=== PATIENT | female | born 1955 | race African-American/Black ===

== ENCOUNTER 2018-12-08 19:40 | Emergency (ER) | payer OTHER ==
[~2018-12-08] VITALS: Ht 165.1 cm; Wt 66.0 kg
[2018-12-08] MEDS ORDERED: SODIUM CHLORIDE 0.9% 10ML VIAL ONE (19:50)
[2018-12-08] MEDS ORDERED: VECURONIUM BROMIDE 10 MG/VIAL IV ONE ×2 (19:50→20:00)
[2018-12-08] MEDS ORDERED: EPINEPHRINE 0.1MG/ML (1:10,000) 10ML SYR ONE ×2 (19:58→20:15)
[2018-12-08] MEDS ORDERED: ALTEPLASE 100MG/VIAL IV NR ×2 (20:00→20:14)
[2018-12-08] MEDS ORDERED: SUCCINYLCHOLINE CHLORIDE 200MG/10ML IV ONE (20:00)
[2018-12-08] MEDS ORDERED: ETOMIDATE 2MG/ML 10ML VIAL IV ONE (20:00)
[2018-12-08] MEDS ORDERED: PROPOFOL 10MG/ML 100ML 100 ML IV ONE (20:00)
[2018-12-08] MEDS ORDERED: DOPAMINE 400MG/250ML PREMIX 250 ML IV ONE (20:36)
[2018-12-08] MEDS ORDERED: NOREPINEPHRINE 4MG/250ML PMX 250 ML IV SCH (20:52)
[2018-12-08] MEDS ORDERED: NOREPINEPHRINE 4MG/250ML PMX 250 ML IV ONE (20:53)
[2018-12-08] MEDS ORDERED: NOREPINEPHRINE 4 MG in DEXT 5% WATER 246 ML IV ONE (21:00)
[2018-12-08 21:34] LABS: BG BASE EXCESS -19.2 mmol/L (-2.0-2.0); BG CARBOXYHEMOGLOBIN 0.3 % (0.5-1.5); BG DEOXYHEMOGLOBIN 0.7 % (0.0-5.0); BG FRACTION INSPIRED OXYGEN 100; BG HCO3 ACT 11.8 mmol/L (22.0-26.0); BG METHEMOGLOBIN 0.3 % (0.0-1.5); BG OXYGEN SATURATION 99.3 % (92.0-98.5); BG OXYHEMOGLOBIN 98.7 % (94.0-97.0); BG PH 6.949 (7.350-7.450); BG PO2 377.8 mmHg (75.0-100.0); BG SAMPLE SITE RIGHT BRACHIAL; BG TIDAL VOLUME(mL) 500 mL; BG VENT MODE VENT - A/C; BG VENT RATE 14 set
[2018-12-08] MEDS ORDERED: IOHEXOL-350 100 ML BOTTLE ONE (21:36)
[2018-12-08 21:55] LABS: BASOPHILS % 0.4 % (0.0-2.0); HEMATOCRIT. 25.4 % (36.0-48.0); HEMOGLOBIN. 7.9 g/dL (12.0-16.0); LYMPHOCYTES % 37.9 % (20.0-50.0); MEAN CORPUSCULAR HEMOGLOBIN 28.4 pg (28.0-32.0); MEAN CORPUSCULAR VOLUME 91.7 fL (81.0-99.0); MEAN PLATELET VOLUME 8.6 fl (7.4-10.4); MONOCYTES % 3.3 % (2.0-8.0); NEUTROPHILS % 57.4 % (40.0-76.0); PLATELET 136 x1000/uL (130-400); RED BLOOD CELL COUNT 2.77 mill/uL (4.2-5.4)
[2018-12-08 22:02] LABS: CHLORIDE 113 mEq/L (98-107)
[2018-12-08 22:08] LABS: ETHANOL BLOOD < 10 mg/dL; PROTHROMBIN TIME 98.7 sec (9.6-11.0)
[2018-12-08 22:14] LABS: INR 10.7
[2018-12-08 22:15] LABS: PARTIAL THROMBOPLASTIN TIME 134.4 sec (23.4-31.0)
[2018-12-08] MEDS ORDERED: LEVOFLOXACIN 750MG PREMIX 150 ML IV ONE (22:45)
[2018-12-08] MEDS ORDERED: HEPARIN 25,000 UNITS PREMIX 500 ML IV SCH (22:45)
[2018-12-08 23:11] LABS: CLARITY URINE CLEAR (CLEAR); COLOR URINE DARK YELLOW (YELLOW); KETONES URINE NEGATIVE (NEGATIVE); LEUKOCYTE ESTERASE URINE NEGATIVE (NEGATIVE); NITRITE URINE NEGATIVE (NEGATIVE); OCCULT BLOOD URINE 3+ (NEGATIVE); PH URINE 6.5 (4.5-8.0); PROTEIN URINE 2+ (NEGATIVE); SPECIFIC GRAVITY URINE 1.029 (1.005-1.030); UROBILINOGEN URINE 0.2 E.U./dL (0.2-1.0)
[2018-12-08 23:25] LABS: *AMPHETAMINES SCREEN URINE NEGATIVE (NEGATIVE); *BARBITURATES SCREEN URINE NEGATIVE (NEGATIVE); *BENZODIAZEPINES SCREEN URINE NEGATIVE (NEGATIVE); *COCAINE SCREEN URINE NEGATIVE (NEGATIVE); METHADONE URINE SCREEN NEGATIVE (NEGATIVE)
[2018-12-08 23:26] LABS: CANNABINOID URINE SCREEN PRESUMTIVE POSITIVE (NEGATIVE); OPIATES URINE SCREEN NEGATIVE (NEGATIVE); PHENCYCLIDINE URINE SCREEN NEGATIVE (NEGATIVE)
[2018-12-09] MEDS ORDERED: DOPAMINE 400MG/250ML PREMIX 250 ML IV ONE ×2 (00:30)
[2018-12-09] MEDS ORDERED: NOREPINEPHRINE 4 MG in DEXT 5% WATER 246 ML IV ONE (00:30)
[2018-12-09] MEDS ORDERED: SODIUM BICARBONATE 8.4% 1 MEQ/ML 50ML SYR IV ONE ×2 (01:14→04:27)
[2018-12-09] MEDS ORDERED: IPRATROPIUM/ALBUTEROL 0.5-3(2.5)MG/3ML NEB HHN PRN (01:15)
[2018-12-09] MEDS ORDERED: ACETAMINOPHEN 325MG TABLET PO PRN (01:15)
[2018-12-09] MEDS ORDERED: HYDROMORPHONE HCL/PF 2MG/ML CPJ IV PRN (01:15)
[2018-12-09] MEDS ORDERED: PIPERACILLIN/TAZ 3.375G PREMIX 50 ML IV SCH (01:15)
[2018-12-09] MEDS ORDERED: IPRATROPIUM/ALBUTEROL 0.5-3(2.5)MG/3ML NEB HHN SCH (01:15)
[2018-12-09] MEDS ORDERED: PANTOPRAZOLE SODIUM 40 MG/VIAL IV SCH (01:15)
[2018-12-09] MEDS ORDERED: LORAZEPAM 2MG/ML CPJ IV PRN (01:15)
[2018-12-09] MEDS ORDERED: ENOXAPARIN 80MG/0.8ML SYR SUBCUT SCH (02:00)
[2018-12-09] MEDS ORDERED: MIDAZOLAM HCL 2 MG/2 ML VIAL ONE (02:39)
[2018-12-09] MEDS ORDERED: EPINEPHRINE 1 MG in SODIUM CHLORIDE 0.9% 250 ML IV STA (02:45)
[2018-12-09] MEDS ORDERED: MIDAZOLAM HCL 2 MG/2 ML VIAL IV ONE (02:45)
[2018-12-09] MEDS ORDERED: VECURONIUM BROMIDE 10 MG/VIAL IV ONE (02:45)
[2018-12-09] MEDS ORDERED: VASOPRESSIN 10 UNIT in SODIUM CHLORIDE 0.9% 99.5 ML STA (02:45)
[2018-12-09] MEDS ORDERED: EPINEPHRINE 1 MG in SODIUM CHLORIDE 0.9% 250 ML IV SCH (03:00)
[2018-12-09] MEDS ORDERED: VASOPRESSIN 10 UNIT in SODIUM CHLORIDE 0.9% 99.5 ML IV SCH (03:00)
[2018-12-09] MEDS ORDERED: SODIUM BICARBONATE 150 MEQ in DEXTROSE 5% WATER 1,000 ML IV STA (03:01)
[2018-12-09 04:11] VITALS: BP 81/53
[2018-12-09 04:24] LABS: HEMATOCRIT 10.6 % (36.0-48.0); HEMOGLOBIN 3.3 g/dL (12.0-16.0)
== END 2018-12-09 06:38 | disposition expired ==
LOC: ER 19:40 → EDBEDREQ 22:48 → EDBEDREQTM 22:48 → EDBEDREQSVC 22:48 → CANRESERV 12-09 01:43 → ENRESERV 12-09 01:43 → ER 12-09 06:38 → CANBEDREQ 12-09 16:38
DX: I26.99 Other pulmonary embolism without acute cor pulmonale (principal); J96.90 Respiratory failure, unspecified, unspecified whether with hypoxia or hypercapnia; R91.8 Other nonspecific abnormal finding of lung field; E87.2 Acidosis; D64.9 Anemia, unspecified; R19.30 Abdominal rigidity, unspecified site; R14.0 Abdominal distension (gaseous); J44.9 Chronic obstructive pulmonary disease, unspecified; I45.10 Unspecified right bundle-branch block; Z98.890 Other specified postprocedural states; Z86.718 Personal history of other venous thrombosis and embolism
CPT/HCPCS: 31500; 36415; 36556; 36600; 37195; 70450; 71045; 71275; 80053; 80305; 80320; 81003; 82375; 82805; 83690; 83880; 84484; 85014; 85018; 85025; 85610; 85730; 86850; 86900; 86901; 86920; 87040; 92950; 93005; 96365; 96366; 96368; 96375; 99291; J1265; J1956; J2060; J2250; J2704; J2997; J3490; J7050; J7060; J7070; Q9967; Z7610; 94002; J1650; P9016; G0480